=== PATIENT | female | born 1990 | race Caucasian/White ===

== ENCOUNTER 2023-07-29 23:07 | Emergency (ER) | payer SELFPAY ==
[~2023-07-29] VITALS: Ht 160 cm; Wt 78.0 kg
[2023-07-29 23:17] VITALS: BP 158/114; PULSE 142; RESP 18; TEMP 98.4; O2SAT 98
[2023-07-30] MEDS: ACETAMINOPHEN 325MG TABLET PO ONE
[2023-07-30] MEDS ORDERED: TOPUD MT (04:03)
[2023-07-30] MEDS: ACETAMINOPHEN 325MG TABLET PO NR (06:03)
== END 2023-07-30 06:38 | disposition home or self-care (01) ==
LOC: ER 23:07
DX: S00.83XA Contusion of other part of head, initial encounter (principal); Y04.0XXA Assault by unarmed brawl or fight, initial encounter; Y93.89 Activity, other specified; Y92.89 Other specified places as the place of occurrence of the external cause; Y99.8 Other external cause status
CPT/HCPCS: 70486; 81025; 99284